=== PATIENT | male | born 1995 | race Caucasian/White ===

== ENCOUNTER 2020-12-13 13:55 | Emergency (ER) | payer OTHER ==
[2020-12-13 14:09] VITALS: BP 125/70
[2020-12-13] MEDS ORDERED: BUFFERED LIDOCAINE 10 ML SYRINGE SUBQ STA (14:18)
--- NOTE | 2020-12-13 14:23 | ED Physician Documentation ---
History of Present Illness - Stated complaint Stated Complaint: THUMB LAC - Chief complaint Chief Complaint: Laceration - Additonal information Additional information: 25-year-old male presents emergency department for evaluation of a near distal thumb amputation sustained when using a skill saw at work. Patient is right- hand dominant. Tetanus is up-to-date within the last 3 years. Review of Systems Constitutional: reports: Reviewed and negative Eyes: reports: Loss of vision Ears: reports: Reviewed and negative Nose: reports: Reviewed and negative Throat: reports: Reviewed and negative Cardiac: reports: Reviewed and negative Respiratory: reports: Reviewed and negative GI: reports: Reviewed and negative : reports: Reviewed and negative Skin: reports: Laceration (s) (left thumb) Neurologic: reports: Reviewed and negative PD PAST MEDICAL HISTORY - Past Medical History Past Medical History: Yes Cardiovascular: None Respiratory: None Neuro: None Endocrine/Autoimmune: None GI: Other : None HEENT: None Psych: None Musculoskeletal: None Derm: None - Past Surgical History Past Surgical History: No General: Colonoscopy - Present Medications Home Medications: Ambulatory Orders Medication Instructions Recorded Confirmed Bacitracin Zinc Oint 1 applic TOP BID #1 gm 12/13/20 HYDROcod/ACETAM 5/325 [[place] 5/325] 1 - 2 tablet PO Q6H PRN #10 tablet 12/13/20 cephALEXin [Keflex] 500 mg PO Q6H #28 12/13/20 - Allergies Allergies/Adverse Reactions: Allergies Allergy/AdvReac Type Severity Reaction Status Date / Time No Known Drug Allergies Allergy Verified 12/13/20 14:07 - Social History Does the pt smoke?: No Smoking Status: Never smoker Does the pt drink ETOH?: No Does the pt have substance abuse?: No - Immunizations Immunizations are current?: Yes Immunizations: TDAP current <10years PD ED PE EXPANDED - Extremities Extremities: Left finger(s) (TipLeft thumb mutation radial side through the nailbed. Bleeding controlled with pressure. Patient is able to flex and extend digit at DIP. Flap is dusky and ecchymotic) Results - Vitals Vitals: Vital Signs - 24 hr 12/13/20 14:07 Temperature 37.1 C Heart Rate 66 Respiratory 16 Rate Blood Pressure 125/70 O2 Saturation 99 Oxygen O2 Source Room air - Rads (name of study) left thumbs xr Radiology: Final report received (Small avulsion fracture involving the tuft of the first distal phalange ) Procedures - Laceration (location) left thumb Length in cm: 3 Wound type: Irregular, Into subcut fat, Into muscle, Clean Neurovascular status: Sensory intact, Motor intact Tendon involvement: Tendon intact Anesthesia: Lidocaine 1% Wound preparation: Chlorhexadine, Irrigated copiously NS, Debrided moderately, Wound explored Skin layer closure: Interrupted, Size #-0 - enter number (4), Sutures - enter # (4) Other: Patient tolerated well, No complications, Neurovascular intact, Tetanus UTD PD MEDICAL DECISION MAKING - ED course Complexity details: reviewed results, re-evaluated patient ED course: 25-year-old male presents to the emergency department with a near tip amputation of the left thumb sustained when using a skill saw at work. X-ray does show a small avulsion fracture of the distal phalange E. Patient was given ceftriaxone here in the emergency department. This 3 cm laceration did extend through the nail bed. The wound is approximated with 4 sutures through the nailbed itself. Patient will be discharged with a prescription for Keflex. His tetanus is up-to-date. Will be referred to orthopedics for follow-up. routine wound care and emergent return precautions were discussed Appropriate labor and industries paperwork completed.. Departure - Departure Disposition: 01 Home, Self Care Clinical Impression: Avulsion fracture Laceration of thumb with damage to nail Qualifiers: Encounter type: initial encounter Foreign body presence: without foreign body Laterality: left Qualified Code(s): S61.112A - Laceration without foreign body of left thumb with damage to nail, initial encounter Condition: Stable Record reviewed to determine appropriate education?: Yes Follow-Up: [facility] [Provider Group] Prescriptions: Bacitracin Zinc Oint 1 applic TOP BID #1 gm cephALEXin [Keflex] 500 mg PO Q6H #28 HYDROcod/ACETAM 5/325 [[place] 5/325] 1 - 2 tablet PO Q6H PRN #10 tablet PRN Reason: Pain Comments: Marcio you were seen today in the emergency department for laceration of your left thumb. The x-ray does show a small avulsion fracture of the distal tip. This is something that will simply heal with time however because it is associated with the laceration we do have to treated as an open fracture. Please fill the prescription for the cephalexin and begin taking as directed. The laceration did go through your nailbed and we did close this with 4 sutures. I would like you to schedule an appointment to follow-up with the orthopedic doctors in 1 week. In 24 hours you may gently remove your dressing wash the area with warm soap and water, apply any antibiotic ointment and a bandage and then your splint. If at any point you have redness, swelling, fevers red streaking milky drainage or any concerns of infection please return immediately to the emergency department. I do recommend that you take ibuprofen xint-ulp-vuxympi for pain and discomfort. I have also prescribed a limited amount of hydrocodone or Vicodin for more severe pain. Do not drive if taking this it can legally intoxicated you. Your suture should be removed in 7 to 10 days. In 24 hours you may remove the dressing wash gently with warm soap and water, apply any antibiotic ointment and a simple bandage. Your tetanus is up-to-date. Please attempt to keep your wound clean and dry. Do not submerge it in dirty dishwater or bath water. Return to the emergency department if you have any concerns of infection such as redness, fevers milky drainage increased pain.
--- NOTE | 2020-12-13 14:41 | XRAY Report ---
PROCEDURE: Finger(s) LT INDICATIONS: r/o fx after skill saw laceration TECHNIQUE: AP hand, 2 views of the left first finger(s) acquired. COMPARISON: None FINDINGS: Bones: Small avulsion fracture involving the lateral margin of the tuft of the first distal phalange. No suspicious bony lesions. Soft tissues: No suspicious soft tissue calcifications. IMPRESSION: Small avulsion fracture involving the tuft of the first distal phalange. Reviewed by: Yulia Lee MD, PhD on 12/13/2020 2:40 PM PDT Approved by: Yulia Lee MD, PhD on 12/13/2020 2:40 PM PDT Station ID: [id number]
[2020-12-13] MEDS ORDERED: LIDOCAINE 1% 2 ML VIAL MC ONE (14:49)
[2020-12-13] MEDS ORDERED: cefTRIAXone 1 GM VIAL IM STA (14:49)
--- OUTSIDE RECORDS SUMMARY | 2020-12-13 14:52 | EXTERNAL MEDICAL SUMMARY RPT | Continuity of Care Document ---
:1995 Demographics Phone Unavailable Preferred Language Unknown Marital Status Unknown Scientologist Affiliation Unknown Race Unknown Ethnic Group Unknown Author Organization [facility] Address [address] [phone] Phone Social History date description facility [id number]
[2020-12-13] MEDS ORDERED: BACITRACIN ZINC OINT 1 PACKET TOP STA (15:45)
== END 2020-12-13 16:02 | disposition home or self-care (01) ==
LOC: ED 13:55
DX: S62.522B Displaced fracture of distal phalanx of left thumb, initial encounter for open fracture (principal); W29.8XXA Contact with other powered hand tools and household machinery, initial encounter; Y93.89 Activity, other specified; Y99.0 Civilian activity done for income or pay
CPT/HCPCS: 1040M; 12002; 73140; 96372; 99281; 99283; A9270

== ENCOUNTER 2023-12-30 15:25 | Emergency (ER) | payer OTHER ==
[2023-12-30] MEDS ORDERED: BUFFERED LIDOCAINE 10 ML SYRINGE SUBQ STA (15:34)
[2023-12-30 15:35] VITALS: BP 122/86; O2SAT 98
--- NOTE | 2023-12-30 15:42 | ED Physician Documentation ---
PD HPI UPPER EXT INJURY - Stated complaint Stated Complaint: L FINGER LAC - Chief complaint Chief Complaint: Laceration - History obtained from History obtained from: Patient (28-year-old gentleman who is otherwise healthy and right-handed accidentally cut his left ring finger with a lumber trimmer at home while working just prior to arrival. No other injuries. Tetanus is up-to-date a few years ago.) PD PAST MEDICAL HISTORY - Past Medical History Cardiovascular: None Respiratory: None Neuro: None Endocrine/Autoimmune: None GI: Other : None HEENT: None Psych: None Musculoskeletal: None Derm: None - Past Surgical History Past Surgical History: No General: Colonoscopy - Present Medications Home Medications: Ambulatory Orders Medication Instructions Recorded Confirmed Bacitracin Zinc Oint 1 applic TOP BID #1 gm 12/13/20 HYDROcod/ACETAM 5/325 [[place] 5/325] 1 - 2 tablet PO Q6H PRN #10 tablet 12/13/20 cephALEXin [Keflex] 500 mg PO Q6H #28 12/13/20 - Allergies Allergies/Adverse Reactions: Allergies Allergy/AdvReac Type Severity Reaction Status Date / Time No Known Drug Allergies Allergy Verified 12/30/23 15:31 - Social History Does the pt smoke?: No Smoking Status: Never smoker Does the pt drink ETOH?: No Does the pt have substance abuse?: No - Immunizations Immunizations are current?: Yes Immunizations: TDAP current <10years PD ED PE NORMAL - Vitals Vital signs reviewed: Yes - General General: Alert and oriented X 3, No acute distress - Extremities Extremities: Other (On the left ring finger there is a laceration through the distal ulnar side of the nail distally around onto the pulp measuring a little over a centimeter. There is some diminished sensation at the tip.) - Neuro Neuro: Alert and oriented X 3, Normal speech Results - Vitals Vitals: Vital Signs - 24 hr 12/30/23 15:29 Temperature 36.4 C L Heart Rate 76 Respiratory 16 Rate Blood Pressure 122/86 H O2 Saturation 98 Oxygen O2 Source Room air Procedures - Laceration (location) Left ring finger Length in cm: 1.2 Wound type: Linear Neurovascular status: Sensory intact (Slightly diminished sensation on the ulnar side of the tip), Motor intact Anesthesia: Lidocaine 1% (Digital block with buffered lidocaine with excellent anesthesia.) Wound preparation: Hibiclens, Irrigated copiously NS, Debrided moderately (The ulnar side of the distal nail was debrided and removed) Skin layer closure: Nylon, Interrupted, Size #-0 - enter number (4-0), Sutures - enter # (3) Other: Patient tolerated well, No complications, Neurovascular intact, Tetanus UTD Departure - Departure Disposition: 01 Home, Self Care Clinical Impression: Laceration of left ring finger Qualifiers: Encounter type: initial encounter Damage to nail status: with damage Foreign body presence: without foreign body Qualified Code(s): S61.315A - Laceration without foreign body of left ring finger with damage to nail, initial encounter Condition: Good Record reviewed to determine appropriate education?: Yes Instructions: ED Laceration Hand Comments: Come back for any signs of infection which would include: Redness, swelling, drainage, increased pain, or fevers. You can wash it soap and water. Keep it covered and moist with bacitracin ointment which is available over the counter; avoid neosporin. Follow-up with your physician in about 14 days for suture removal. Forms: PCP List
== END 2023-12-30 16:09 | disposition home or self-care (01) ==
LOC: ED 15:25
DX: S61.315A Laceration without foreign body of left ring finger with damage to nail, initial encounter (principal); W29.3XXA Contact with powered garden and outdoor hand tools and machinery, initial encounter; Y93.H2 Activity, gardening and landscaping; Y92.007 Garden or yard of unspecified non-institutional (private) residence as the place of occurrence of the external cause
CPT/HCPCS: 12001; 99283